=== PATIENT | female | born 1985 | race Caucasian/White ===

== ENCOUNTER 2019-01-09 14:19 | Outpatient (CLI) | payer BC, SELFPAY ==
[2019-01-09 14:50] VITALS: BMI 32.6
--- NOTE | 2019-01-09 20:00 | OB.TRI.HP_ITS ---
- Problem List (1) 33 weeks gestation of Status: Acute (2) Decreased movement Status: Acute Qualifiers: Fetus number: single or unspecified fetus Trimester: third trimester Qualified Code(s): O36.8130 - Decreased movements, third trimester, not applicable or unspecified History of Present Illness Date of Service: 01/09/19 Was patient seen by the physician?: No Reason For Visit: DFM Final VERA: 02/21/19 Final VERA Source: US <20 weeks Gestational age: 33 weeks 6 days History of Present Illness: 33 year old 1 at 33 6/7 weeks gestation with c/o decreased movement. She is from [facility]. [facility]. Allergies No Known Allergies Allergy (Verified 01/09/19 14:50) - Pertinent Past Medical History Pertinent Past Medical History: Marginal cord insertion Laboratory Studies: labs: 1h GTT 79 mg/dL Rubella nonimmune HBsAg negative RPR nr HCV Ab nonreactive O positive HIV nonreactive First trimester screen low risk NST - FHR Rate Baby A Baseline: 140 Variability:: Moderate Accelerations:: 15 x 15 Decelerations:: None NST Reactive:: Yes FHR Category:: Category I Uterine Activity:: irritability Impression/Plan Reactive NST No persistence of decreased movement D/C home
== END 2019-01-09 15:25 | disposition home or self-care (01) ==
LOC: WPOUT 14:36 → WP 01-11 09:29
PROVIDERS: Referring Provider Obstetrics & Gynecology; Visit Provider Obstetrics & Gynecology
DX: O36.8130 Decreased fetal movements, third trimester, not applicable or unspecified (principal); Z3A.33 33 weeks gestation of pregnancy
CPT/HCPCS: 59025; 59050; 99218; G0378